=== PATIENT | female | born 1945 | race Caucasian/White ===

== ENCOUNTER 2016-08-05 12:40 | Inpatient (IN) ==
[2016-08-05] MEDS ORDERED: SODIUM CHLORIDE 0.9% 1,000 ML IV STA (13:15)
--- NOTE | 2016-08-05 13:22 | Emergency Department Note ---
Boni Armas Hilary, am scribing for, and in the presence of, Damion Meek MD 13: 20. Gaviota Armas James D, MD, personally performed the services described in this documentation, ascribed by Smiley Plata in my presence, and it is both accurate and complete 321 . Arrival - Arrival Chief Complaint: Altered Mental Status Stated Complaint: confusion ED Nursing Triage Note: Brought in per EMS from home with c/o altered mental status x 3 days per spouse. Spouse reports she has been confused and "not acting herself". Awake and alert to name. +low back pain--denies injury. Mode of Arrival: Stretcher Limitations: No Limitations Source: Patient, Significant other, RN Notes Reviewed Time Seen by Provider: 08/05/16 13:07 - History of Present Illness HPI Narrative: Pt is a 70 y/o white female brought into the ED via EMS for c/o confusion which onset 3 days ago. Pts spouse states that she is confused and dazed when she is usually sharp he denies fever and pt states her back hurts. Her daughter is in the room and reports that her medications have not been changed recently. No other complaints or problems stated in the ED. Onset (ago): day(s) Consistency: constant Severity: mild Severity scale (1-10): 1 Date of Last Menstrual Period: PM Allergies/Adverse Reactions: Allergies Allergy/AdvReac Type Severity Reaction Status Date / Time Sulfa (Sulfonamide Allergy RASH Verified 08/05/16 12:55 Antibiotics) Pyfsktt-Mye-Qrg Reductase AdvReac Intermediate Weakness Verified 08/05/16 12:55 Inhibitor promethazine [From Phenergan] AdvReac Hallucinati Verified 08/05/16 12:55 ng Home Medications: Home Medications Medication Instructions Recorded Confirmed Type Allopurinol 300 mg PO DAILY 08/29/14 08/05/16 History Atenolol 50 mg PO DAILY 08/29/14 08/05/16 History Carbidopa/Levodopa 25-100 [Sinemet 1 tablet PO BID 08/29/14 08/05/16 History 25-100] Levothyroxine Tab [Synthroid Tab] 100 mcg PO DAILY 08/29/14 08/05/16 History Ropinirole HCl [Requip] 2 mg PO BID 08/29/14 08/05/16 History Baclofen [Baclofen] 5 mg PO TID 08/05/16 08/05/16 History Furosemide [Furosemide] 40 mg PO BID 08/05/16 08/05/16 History Insulin Aspart Prot/Insuln Asp 38 units SUBCUT QPM 08/05/16 08/05/16 History [NovoLOG Mix 70-30 FlexPen] Insulin Aspart Prot/Insuln Asp 42 units SUBCUT QAM 08/05/16 08/05/16 History [NovoLOG Mix 70-30 FlexPen] LORazepam [Lorazepam] 1 mg PO TID PRN 08/05/16 08/05/16 History Potassium Chloride Cap/Tab [K Dur] 20 meq PO DAILY 08/05/16 08/05/16 History diazePAM [Diazepam] 5 mg PO BID 08/05/16 08/05/16 History metOLazone [Metolazone] 2.5 mg PO DAILY 08/05/16 08/05/16 History Review of System - Review of System 12 point system: reviewed and no additional remarkable complaints except as stated - Review of System Constitutional: Present: other (confusion). Absent: fever Neurological: Present: confusion Medical,Surgical,& Family Hx - Medical History Cardio: History of: Cardiac Dysrhythmia, Hypertension Neurology: History of: TIA (Patient reports history of TIA) Endocrine: History of: Diabetes Mellitus (IDDM), Thyroid Disorder Genitourinary: History of: Kidney Stones Gastrointestinal: History of: GERD Musculoskeletal: History of: Osteoporosis - Surgical History Thoracic Surgeries: Surgical HX of;: Lithotripsy (Twice) HEENT Surgeries: Surgical HX of: Thyroid Surgery (Thyroid removed) Reproductive Surgeries: Surgical HX of;: Hysterectomy Orthopedic Surgeries: Surgical HX of;: Orthopedic Surgery (R total knee arthroplasty and Left total hip) - Family History Family History: Reports;: Family Cancer (Bladder cancer-Mom), Family Diabetes - Social History Smoking Status: Never smoker Frequency of Alcohol Use: None Type of Drug Use: None Exam Physical Examination: GENERAL: This is a well-nourished, well-developed in no apparent distress. VITAL SIGNS: Temperature: 97.7 Pulse: 88 Respiratory: 20 Blood Pressure: 144/73 O2Sat: 93 HEENT: Head is normocephalic and atraumatic. Pupils are equally round and reactive to light. Extraocular movement are intact. Oropharynx is benign with moist mucous membranes. NECK: Neck is soft and supple without tenderness. There are no masses. There is no lymphadenopathy. LUNGS: Lungs are clear to auscultation bilaterally. Chest rises symmetrically. There is no chest wall tenderness. CV: Heart is regular rate and rhythm without murmurs, rubs, or gallops. ABDOMEN: Abdomen is soft, non-tender to palpation. There are no abnormal masses palpated. There is no organomegaly. Bowel sounds are present and active. SKIN: Skin is warm and dry. No rash. EXTREMITIES: Patient has full range of motion without tenderness. Right LE is swollen and errythematous. NEUROLOGIC: confused, delirious, disoriented to time . Cranial nerves II through XII are grossly intact. There are no motorsensory deficits. PSYCHIATRIC: Normal affect. Normal mood. Vital Signs: Vital Signs Temperature 97.7 F 08/05/16 12:40 Pulse Rate 88 08/05/16 12:40 Respiratory Rate 20 08/05/16 12:40 Blood Pressure 144/73 08/05/16 12:40 O2 Sat by Pulse Oximetry 93 L 08/05/16 12:40 Course - Consultations Consultation #1: Discussed with hospitalist. Patient will be admitted to their service. Time: 15:33 Procedures - ABG Interpretation ABG Interpretation 1 Interpretation: normal Results - Labs CBC & BMP: 08/05/16 13:43 08/05/16 13:43 Lab Results: I have reviewed the patients labs Labs: Laboratory Tests 08/05/16 13:07 ABG pH 7.447 ABG pCO2 44.1 ABG pO2 87.8 ABG HCO3 29.6 H ABG Total CO2 27.1 H ABG O2 Saturation 96.8 ABG Base Excess 5.7 H Laboratory Tests 08/05/16 08/05/16 13:43 13:46 WBC 14.3 H RBC 4.39 Hgb 11.7 L Hct 35.9 MCV 81.8 L Plt Count 350 Lymph % (Auto) 17.7 L Neut # (Auto) 10.2 H [place] # (Auto) 1.3 H POC Glucose 158 H Laboratory Tests 08/05/16 08/05/16 08/05/16 13:07 13:43 13:43 ABG pH 7.447 ABG pCO2 44.1 ABG pO2 87.8 ABG HCO3 29.6 H ABG Total CO2 27.1 H ABG O2 Saturation 96.8 ABG Base Excess 5.7 H Sodium 140 Potassium 3.4 L Chloride 100 Carbon Dioxide 32 BUN 24 H Creatinine 1.00 BUN/Creatinine Ratio 24.00 H Glucose 159 H Troponin I < 0.015 TSH 3rd Generation 0.343 L Urine pH 6.0 Ur Specific [place] 1.008 Urine Urobilinogen < 2.0 H Urine RBC <1 Urine WBC <1 Urine Opiates Screen Ur Barbiturates Screen Ur Phencyclidine Scrn U Amphetamine/Methamph U Benzodiazepines Scrn U Cocaine Metab Screen U Cannabinoids Screen Serum Alcohol < 15 L 08/05/16 13:43 ABG pH ABG pCO2 ABG pO2 ABG HCO3 ABG Total CO2 ABG O2 Saturation ABG Base Excess Sodium Potassium Chloride Carbon Dioxide BUN Creatinine BUN/Creatinine Ratio Glucose Troponin I TSH 3rd Generation Urine pH Ur Specific [place] Urine Urobilinogen Urine RBC Urine WBC Urine Opiates Screen Negative Ur Barbiturates Screen Negative Ur Phencyclidine Scrn Negative U Amphetamine/Methamph Negative U Benzodiazepines Scrn Positive H U Cocaine Metab Screen Negative U Cannabinoids Screen Negative Serum Alcohol - EKG EKG results: interpreted by ERMD - Impressions EKG: Normal sinus rhythm with rate 85, nonspecific ST-T wave changes, normal axis. - Diagnostic Findings Procedure: Chest x-ray: image reviewed by me (No infiltrates, no pleural effusions.), CT: image reviewed by me (CT head: No acute intracranial lesion or hemorrhage. Patient does have left maxillary sinusitis.), Ultrasound: report reviewed by me (Right lower extremity venous Doppler: No evidence of deep venous thrombosis in gage right lower extremity) Disposition Clinical Impression: Altered mental status, Diabetes mellitus Case discussed with: patient, patient's family Disposition: Still a Patient Condition: Stable Time of Disposition: 15:33
--- NOTE | 2016-08-05 13:31 | XRay Report ---
XR chest 1V portable Indication: Altered mental status Comparison: Chest x-ray dated May 21, 2016 Technique: Single frontal view of the chest. Findings: Mild cardiomegaly. There is nonspecific prominence of lung markings suspicious for interstitial pulmonary edema. Chronic/fibrotic change and interstitial pneumonia may have similar appearance. The lungs are mildly hyperinflated which could reflect emphysematous change. Visualized osseous and surrounding soft tissue structures appear grossly unchanged. IMPRESSION: As above. PROCEDURE INTERPRETED AT [facility] DEPARTMENT OF RADIOLOGY Final Report Signed by: Dr Victor Hugo Medellin
[2016-08-05 13:39] LABS: ABG Base Excess 5.7 MMOL/L (-2.5-2.5); ABG HCO3 29.6 MMOL/L (20-26); ABG Oxygen Saturation 96.8 % (95-100); ABG PCO2 44.1 MM HG (35-48); ABG PH 7.447 (7.35-7.45); ABG PO2 87.8 MM HG (80-95); ABG TCO2 27.1 MMOL/L (23-27)
--- NOTE | 2016-08-05 13:43 | EKG Report ---
Stationary ECG Study [facility] ER Test Date: 08/05/2016 1:42:11 PM Pat Name: GABRIEL STEVENS Department: Room: Gender: F [employer]ician: : 1945 Requested by: Damion Castañeda Order Number: [id number] Reading MD: CIERRA MORA Intervals [place] Rate: 85 P: 82 OH: 196 QRS: 5 QRSD: 90 T: 66 QT: 348 QTc: 390 Interpretive Statements SINUS RHYTHM DIFFUSE BASELINE ARTIFACT THAT LIMITS INTERPRETATION Electronically Signed On 08-06-16 08:24:00 CDT by CIERRA MORA [email or web address]
[2016-08-05 13:53] LABS: Basophils # 0.1 10*3/uL (0.0-0.2); Basophils % 0.7 % (0.0-0.8); Eosinophils # 0.1 10*3/uL (0.0-0.87); Eosinophils % 0.9 % (0.00-10.9); Hematocrit 35.9 VOL% (35.7-47.0); Hemoglobin 11.7 GM/DL (12.0-16.0); Immature Granulocytes % 0.5 %; Immature Granulocytes Absolute 0.07 #; Lymphocytes # 2.5 10*3/uL (1.4-4.0); Lymphocytes % 17.7 % (21.3-54.2); Mean Corpuscular HGB Conc 32.6 GM/DL (32-36); Mean Corpuscular Hemoglobin 27 PG (27-34); Mean Corpuscular Volume 81.8 FL (87-102); Monocytes # 1.3 10*3/uL (0.11-0.8); Monocytes % 8.8 % (1.7-12.7); Neutrophils # 10.2 10*3/uL (1.4-7.4); Neutrophils % 71.4 % (38.7-73.9); Platelet Count 350 T/CUMM (130-400); Red Blood Count 4.39 MC/CUMM (3.8-5.5); White Blood Count 14.3 T/CUMM (4-12)
[2016-08-05 14:06] LABS: PT Patient Result 10.9 SECS
--- NOTE | 2016-08-05 14:13 | Ultrasound Report ---
US venous doppler LE RT Indication: Swelling of RLE. Comparison: None. Technique: Grayscale, spectral, and color Doppler interrogation of the right lower extremity veins was performed. Augmentation and compression was performed. Findings: Grayscale, color Doppler, and pulsed Doppler evaluation of the veins of the right lower extremity demonstrates no evidence of deep venous thrombosis. IMPRESSION: No evidence of deep venous thrombosis in the right lower extremity. PROCEDURE INTERPRETED AT [facility] DEPARTMENT OF RADIOLOGY Final Report Signed by: Dr Victor Hugo Medellin
[2016-08-05 14:14] LABS: Apearance,Urine CLEAR (Clear); Bilirubin,Urine Negative (Negative); Blood, Urine Negative (Negative); Glucose,Urine (UA) Negative (Negative); Ketones,Urine Negative (Negative); Nitrite,Urine Negative (Negative); Protein,Urine Negative; RBC,Urine <1 /HPF (0-4); Squamous Epithelial Cell,Urine Occasional /HPF (0-10); Urine Color Straw (Yellow); Urine Specific Gravity 1.008 (1.001-1.035); Urine Urobilinogen < 2.0 EU/DL (0.2-1.0); WBC,Urine <1 /HPF (0-6)
[2016-08-05 14:18] LABS: Ammonia 19 UMOL/L (11-32)
[2016-08-05 14:25] LABS: Barbiturates Screen,Urine Negative (Negative); Benzodiazepines Screen,Urine Positive (Negative); Cannabinoid Screen,Urine Negative (Negative); Opiate Screen,Urine Negative (Negative); Phencyclidine Screen,Urine Negative (Negative)
[2016-08-05 14:30] LABS: Alanine Aminotransferase 18 U/L (13-56); Albumin 3.6 G/DL (3.4-5.0); Alkaline Phosphatase 114 U/L (45-117); Aspartate Amino Transferase 19 U/L (0-37); Blood Urea Nitrogen 24 MG/DL (7-18); Calcium 9.5 MG/DL (8.5-10.1); Glucose 159 MG/DL (74-106); Osmolality,Calculated 285.4 MOS/KG (273-304); Potassium 3.4 MMOL/L (3.5-5.1); Sodium 140 MMOL/L (136-145); Thyroid Stimulating Hormone 0.343 uIU/ml (0.358-3.74); Total Protein 6.5 G/DL (6.4-8.3); Troponin I Only < 0.015 NG/ML (0.00-0.045)
--- NOTE | 2016-08-05 15:43 | CT Report ---
CT head/brain wo con Indication: Altered mental status. CT BRAIN WITHOUT CONTRAST DLP: 1012 mGy*cm. One or more of the following dose reduction techniques was used: Automated exposure control, adjustment of the mA and/or kV according the patient size, or use of iterative reconstruction techniques. Comparison: None. Date of admission: 08/05/2016. Technique: Axial noncontrast CT images of the brain were obtained. Findings: No acute hemorrhage, mass or mass effect. Generalized atrophy and patchy periventricular white matter hypodensity is present throughout both convexities. Cortical arriola-white junction and structures of the basal ganglia are well-defined. No bone lesions are shown. Internal auditory canals are symmetric. Visualized sinuses and mastoid air cells are clear. Impression: No acute intracranial pathology. Generalized atrophy and changes consistent with microvascular disease. PROCEDURE INTERPRETED AT [facility] DEPARTMENT OF RADIOLOGY Final Report Signed by: Denzel Schuler M.D.
--- NOTE | 2016-08-05 16:47 | Hospitalist History & Physical ---
<Edda Aponte - Last Filed: 08/05/16 16:58> Assessment and Plan (1) Altered mental status Status: Acute Assessment and plan: Admit patient. Cardiac monitoring. Consult neuro. MRI pending. Ammonia/lactic acid normal. WBC elevated. Current Visit: Yes (2) Diabetes mellitus Status: Acute Assessment and plan: Accuchecks. SSI. Hemoglobin A1c in am. Monitor patient. Diabetes education. Diabetic diet Current Visit: Yes (3) Hypokalemia Status: Acute Assessment and plan: Replace potassium. Current Visit: No (4) Gout Status: Chronic Current Visit: No History of Present Illness Chief complaint: altered mental status/frequent falls History of present illness: Ms. Crooks is a 70 year old white female with a history of gerd, hypertension, cardiac dysrhthmia, DM, hypothyroidism, restless legs, and parkinsons that presents to the ED today with evaluation of confusion. Pt. is accompanied by and daughter. Pt's states that the patient has been falling frequently lately and that she has not been "acting right". Pt. states that the patient was found on the floor of her bedroom this morning around 9. Pt states she cant remember if she hit her head or not. Pt. denies fever,vision changes, shortness of breath or chest pain. Pt. does complain of generalized weakness. On examination of patient, she was found to have an elevated WBC (14.3), Na (140 ), K (3.4), chl (100), bun (24), creatinine (1) and tsh (0.343). Head CT was unremarkable with no acute pathology noted. Pt. will be admitted to the hospitalist service for further eval and treatment. Home Medications Medication Instructions Recorded Confirmed Type Allopurinol 300 mg PO DAILY 08/29/14 08/05/16 History Atenolol 50 mg PO DAILY 08/29/14 08/05/16 History Carbidopa/Levodopa 25-100 [Sinemet 1 tablet PO BID 08/29/14 08/05/16 History 25-100] Levothyroxine Tab [Synthroid Tab] 100 mcg PO DAILY 08/29/14 08/05/16 History Ropinirole HCl [Requip] 2 mg PO BID 08/29/14 08/05/16 History Baclofen [Baclofen] 5 mg PO TID 08/05/16 08/05/16 History Furosemide [Furosemide] 40 mg PO BID 08/05/16 08/05/16 History Insulin Aspart Prot/Insuln Asp 38 units SUBCUT QPM 08/05/16 08/05/16 History [NovoLOG Mix 70-30 FlexPen] Insulin Aspart Prot/Insuln Asp 42 units SUBCUT QAM 08/05/16 08/05/16 History [NovoLOG Mix 70-30 FlexPen] LORazepam [Lorazepam] 1 mg PO TID PRN 08/05/16 08/05/16 History Potassium Chloride Cap/Tab [K Dur] 20 meq PO DAILY 08/05/16 08/05/16 History diazePAM [Diazepam] 5 mg PO BID 08/05/16 08/05/16 History metOLazone [Metolazone] 2.5 mg PO DAILY 08/05/16 08/05/16 History Allergies Allergy/AdvReac Type Severity Reaction Status Date / Time Sulfa (Sulfonamide Allergy RASH Verified 08/05/16 12:55 Antibiotics) Lnyswom-Usi-Wls Reductase AdvReac Intermediate Weakness Verified 08/05/16 12:55 Inhibitor promethazine [From Phenergan] AdvReac Hallucinati Verified 08/05/16 12:55 ng Medical,Surgical,& Family Hx - Medical History Cardio: History of: Cardiac Dysrhythmia, Hypertension Neurology: History of: TIA (Patient reports history of TIA) Endocrine: History of: Diabetes Mellitus (IDDM), Thyroid Disorder Genitourinary: History of: Kidney Stones Gastrointestinal: History of: GERD Musculoskeletal: History of: Osteoporosis - Surgical History Thoracic Surgeries: Surgical HX of;: Lithotripsy (Twice) HEENT Surgeries: Surgical HX of: Thyroid Surgery (Thyroid removed) Reproductive Surgeries: Surgical HX of;: Hysterectomy Orthopedic Surgeries: Surgical HX of;: Orthopedic Surgery (R total knee arthroplasty and Left total hip) - Family History Family History: Reports;: Family Cancer (Bladder cancer-Mom), Family Diabetes - Social History Smoking Status: Never smoker Frequency of Alcohol Use: None Type of Drug Use: None Marital Status: Lives With:: Spouse Functional capacity: uses cane/walker - Constitutional Constitutional: Present: frequent falls, weakness. Absent: chills, fever(s) - EENT Eyes: Present: loss of vision, requires corrective lense Ears: Present: decreased hearing. Absent: ear discharge Nose, mouth and throat: Absent: headache(s), hoarseness - Cardiovascular Cardiovascular: Present: dyspnea, edema - Respiratory Respiratory: Present: dyspnea on exertion. Absent: hemoptysis - Gastrointestinal Gastrointestinal: Absent: abdominal pain, nausea, vomiting - Genitourinary Genitourinary: Absent: difficulty urinating, urinary frequency - Musculoskeletal Musculoskeletal: Present: back pain - Neurological Neurological: Present: confusion, frequent falls - Psychiatric Psychiatric: Present: confusion - Endocrine Endocrine: Present: heat intolerance Exam - Constitutional Vitals: Period Temp Pulse Resp BP Sys/Shipley Pulse Ox Last 24 Hr 97.7 F-97.7 F 88-88 20-20 144-144/73-73 93 General appearance: no acute distress, morbidly obese - Head Head exam: Present: normal inspection, normocephalic - Eye Eye exam: Present: EOMI. Absent: scleral icterus Pupils: Present: SHANAE. Absent: dilated - Respiratory Respiratory exam: Present: clear to auscultation bilaterally. Absent: wheezes - Cardiovascular Cardiovascular exam: Present: regular rate and rhythm - GI/Abdominal GI/Abdominal exam: Present: normal bowel sounds, soft. Absent: tenderness - Extremities Exam Extremities exam: Present: normal capillary refill, full ROM, edema, other ( pedal pulses present) - Psychiatric Psychiatric exam: Present: anxious - Skin Skin exam: Present: normal color, warm (right warmer than left;), dry Results - Labs CBC & BMP: 08/05/16 13:43 08/05/16 13:43 Lab Results: I have reviewed the past 24 hour labs <Bia Turner - Last Filed: 08/05/16 17:20> History of Present Illness History of present illness: Ms. Crooks is a 70 year old female with multiple medical problems who was brought to the ER for AMS.Family states patient recently started falling off a chair while sitting on it. This started about 24hrs ago ago and she has since had multiple episodes. She states associated occasional dizziness but no headaches, fever and gait abnormalities. states she has been having abnormal movement for a long time given a history of Parkinsons. There is no known history of sleep apnea though patient is obese. There is no focal weakness as well. Patient was seen, examined and discussed with the [facility] and I agree with current management. Plan MR brain Neuro consult Reduce dose of synthroid- TSH is borderline low Gently hydrate and hold diuretics for now [place] Telemetry cardiac enzymes consider sleep study Exam - Constitutional Vitals: Period Temp Pulse Resp BP Sys/Shipley Pulse Ox Last 24 Hr 97.7 F-97.7 F 88-89 20-20 144-144/73-73 93 Results - Labs CBC & BMP: 08/05/16 13:43 08/05/16 13:43
[2016-08-05] MEDS ORDERED: LORazepam 1 MG TABLET PO PRN (17:00)
[2016-08-05] MEDS ORDERED: SODIUM CHLORIDE 0.45% 1,000 ML IV SCH (17:30)
[2016-08-05] MEDS ORDERED: ONDANSETRON 4 MG/2 ML VIAL IV PRN (18:29)
[2016-08-05] MEDS ORDERED: GLUCAGON 1 MG VIAL IM PRN ×2 (18:29)
[2016-08-05] MEDS ORDERED: DEXTROSE 50% 25 GM/50 ML VIAL IV PRN ×2 (18:29)
[2016-08-05 19:55] LABS: Troponin I Only < 0.015 NG/ML (0.00-0.045)
[2016-08-05] MEDS ORDERED: FUROSEMIDE 40 MG TABLET PO SCH (21:00)
[2016-08-05] MEDS: SODIUM CHLORIDE 0.45% 1,000 ML IV SCH (21:10)
[2016-08-05] MEDS: rOPINIRole 1 MG TABLET PO SCH (21:45)
[2016-08-05] MEDS: BACLOFEN 10 MG TABLET PO SCH (21:45)
[2016-08-05] MEDS: DIAZEPAM 5 MG TABLET PO SCH (21:45)
[2016-08-05] MEDS: CARBIDOPA/LEVODOPA 25-100 MG TABLET PO SCH (21:45)
[2016-08-05] MEDS: INSULIN LISPRO 100 UNIT/ML SUBCUT SCH (22:00)
[2016-08-06 06:25] LABS: Basophils # 0.1 10*3/uL (0.0-0.2); Eosinophils # 0.2 10*3/uL (0.0-0.87); Eosinophils % 2.3 % (0.00-10.9); Hematocrit 34.5 VOL% (35.7-47.0); Hemoglobin 11.1 GM/DL (12.0-16.0); Immature Granulocytes % 0.3 %; Immature Granulocytes Absolute 0.03 #; Lymphocytes # 2.7 10*3/uL (1.4-4.0); Lymphocytes % 29.8 % (21.3-54.2); Mean Corpuscular HGB Conc 32.2 GM/DL (32-36); Mean Corpuscular Hemoglobin 27 PG (27-34); Mean Corpuscular Volume 83.3 FL (87-102); Mean Platelet Volume 11.3 FL (9.6-12.0); Monocytes # 0.8 10*3/uL (0.11-0.8); Monocytes % 9.1 % (1.7-12.7); Neutrophils # 5.3 10*3/uL (1.4-7.4); Neutrophils % 57.5 % (38.7-73.9); Platelet Count 337 T/CUMM (130-400); Red Blood Count 4.14 MC/CUMM (3.8-5.5); Red Cell Distribution Width 16.3 % (9.3-17.3); White Blood Count 9.1 T/CUMM (4-12)
[2016-08-06] MEDS: LEVOTHYROXINE 75 MCG TABLET PO SCH (06:40)
[2016-08-06 07:08] LABS: Calcium 9.1 MG/DL (8.5-10.1); Osmolality,Calculated 284.3 MOS/KG (273-304); Potassium 3.6 MMOL/L (3.5-5.1); Troponin I Only < 0.015 NG/ML (0.00-0.045)
[2016-08-06 07:13] LABS: Free T4 (Free Thyroxine) 1.1 NG/DL (0.76-1.46); Magnesium 2.2 MG/DL (1.8-2.4); Risk Ratio 5.68; Thyroid Stimulating Hormone 0.609 uIU/ml (0.358-3.74)
[2016-08-06] MEDS ORDERED: metOLazone 2.5 MG TABLET PO SCH (09:00)
--- NOTE | 2016-08-06 09:01 | Neurology Consult Note ---
History of Present Illness History of present illness: Patient is not a very good historian. History basically obtained from the chart and some from the nursing staff. 70 years old right-handed white lady who was admitted to the hospital with frequent falls and gait disorder. Patient does not have a history of Parkinson' s disease. She has restless leg syndrome and takes Sinemet and Requip for that. She also has a history of chronic pain syndrome and sees Dr. Pleitez who recently prescribed Eden and apparently a whole bottle is missing. She also takes baclofen and Valium for anxiety and pain. Patient does have a long- standing history of diabetes. No history of seizures. She does not have any speech difficulties, swallowing difficulties, tingling and numbness or weakness at this time. A CT of the head reveals no acute abnormalities. UA is negative , triglycerides are high. Home Medications Medication Instructions Recorded Confirmed Type Allopurinol 300 mg PO DAILY 08/29/14 08/05/16 History Atenolol 50 mg PO DAILY 08/29/14 08/05/16 History Carbidopa/Levodopa 25-100 [Sinemet 1 tablet PO BID 08/29/14 08/05/16 History 25-100] Levothyroxine Tab [Synthroid Tab] 100 mcg PO DAILY 08/29/14 08/05/16 History Ropinirole HCl [Requip] 2 mg PO BID 08/29/14 08/05/16 History Baclofen [Baclofen] 5 mg PO TID 08/05/16 08/05/16 History Doxylamine Succinate [Unisom] 25 mg PO BEDTIME 08/05/16 08/05/16 History Furosemide [Furosemide] 40 mg PO BID 08/05/16 08/05/16 History Insulin Aspart Prot/Insuln Asp 38 units SUBCUT QPM 08/05/16 08/05/16 History [NovoLOG Mix 70-30 FlexPen] Insulin Aspart Prot/Insuln Asp 42 units SUBCUT QAM 08/05/16 08/05/16 History [NovoLOG Mix 70-30 FlexPen] LORazepam [Lorazepam] 1 mg PO TID PRN 08/05/16 08/05/16 History Naproxen Sodium [Aleve Cap] 220 mg PO Q8H PRN 08/05/16 08/05/16 History Potassium Chloride Cap/Tab [K Dur] 20 meq PO BID 08/05/16 08/05/16 History diazePAM [Diazepam] 5 mg PO BID 08/05/16 08/05/16 History diphenhydrAMINE CAP [Benadryl Cap] 25 mg PO BEDTIME PRN 08/05/16 08/05/16 History Allergies Allergy/AdvReac Type Severity Reaction Status Date / Time Sulfa (Sulfonamide Allergy RASH Verified 08/05/16 12:55 Antibiotics) Srqnxte-Gyl-Gpi Reductase AdvReac Intermediate Weakness Verified 08/05/16 12:55 Inhibitor promethazine [From Phenergan] AdvReac Hallucinati Verified 08/05/16 12:55 ng ROS unobtainable: due to mental status Medical,Surgical,& Family Hx - Medical History Cardio: History of: Cardiac Dysrhythmia, Hypertension Psychological: No history of: Anxiety Disorders, ADHD, Behavior Problems, Bipolar Disorder, Depression, Previous Suicide Attempt, Psychiatric/Substance Abuse Tx, Schizophrenia, Violent Behavior, Psychiatric Problems Neurology: History of: TIA (Patient reports history of TIA) Endocrine: History of: Diabetes Mellitus (IDDM), Thyroid Disorder Genitourinary: History of: Kidney Stones Gastrointestinal: History of: GERD Musculoskeletal: History of: Osteoporosis - Surgical History Thoracic Surgeries: Surgical HX of;: Lithotripsy (Twice) HEENT Surgeries: Surgical HX of: Thyroid Surgery (Thyroid removed) Reproductive Surgeries: Surgical HX of;: Hysterectomy Orthopedic Surgeries: Surgical HX of;: Orthopedic Surgery (R total knee arthroplasty and Left total hip) - Family History Family History: Reports;: Family Cancer (Bladder cancer-Mom), Family Diabetes - Social History Smoking Status: Never smoker Frequency of Alcohol Use: None Type of Drug Use: None Exam - Constitutional Vitals: Period Temp Pulse Resp BP Sys/Shipley Pulse Ox Last 24 Hr 96.3 F-98.1 F 69-90 18-22 95-153/41-87 92-98 Exam: GENERAL: Patient is in no acute distress. NECK: Neck is supple. There is no JVD. No carotid bruits present. No thyroid masses. CVS: First and second heart sounds are normal. There is no S3 present. Regular rate and rhythm. RESPIRATORY: Lungs are clear to auscultation without any rales or rhonchi. ABDOMEN: Soft and non-tender. Bowel sounds are present. There is no hepatosplenomegaly. EXT: There is no palpable edema. Peripheral pulses are present. Skin: No rashes Central Nervous system: General: Alert, awake Speech: Fluent Comprehension: Intact and normal Facial expressions: Normal Cranial Nerves: CN1/Olfactory: Normal CN II/ Optic: Normal, Visual [place] unreliable CN III, and : SHANAE & EOMI CN V: Normal & intact CN VII: face is symmetric CNVIII: Normal CN XI/X/XI/XII: Intact and Normal Motor: Bulk and Tone is normal. Strength in the right 3/5 Strength in the left 3/5 Sensory: Decreased for all the modalities of PP, LT and temp sense Reflexes: 1+ and symmetrical Cerebellar function: Normal finger to nose and heel to justin testing. Toes: Equivocal Gait: Not tested at this time Results - Labs CBC & BMP: 08/06/16 05:51 08/06/16 05:51 Assessment and Plan (1) Frequent falls Status: Acute Assessment and plan: Etiology is not clear. No focal neurological deficits seen. Stroke would be less likely however cannot be excluded entirely. Change in mental status could very well be due to neurotropic medications use/ abuse Current Visit: Yes (2) Gait disorder Status: Acute Assessment and plan: Differential would include stroke, peripheral neuropathy or neurotropic medication use We will perform MRI of the brain Consult PT and OT Check Mini-Mental exam Thank you for the consult Current Visit: Yes
[2016-08-06] MEDS: INSULIN LISPRO 100 UNIT/ML SUBCUT SCH ×4 (09:24→21:20)
--- NOTE | 2016-08-06 10:00 | Magnetic Resonance Report ---
Exam: MR head/brain wo con Date: 08/06/2016 Comparison: CT brain 08/05/2016 Indication: Alteration of consciousness, generalized weakness, history of recent falls, confusion Technique:[Multiple acquisitions were obtained including sagittal T1, coronal T2, and axial ADC, diffusion, FLAIR, T2, GRE, and T1 scans without contrast only. Scans were obtained on a 1.5 Karyn magnet.] Findings: The ventricles remain normal in size with no midline displacement. The pituitary is at the upper limits of normal in size with the cerebellar tonsils normal in their location. No acute infarction is identified in the diffusion scans. No evidence of hemorrhage or extracerebral collection. Diffuse atrophy and FLAIR/T2 hyperintensities. Additional enlarged perivascular spaces are noted. Mucosal thickening/fluid in the left maxillary sinus with retention cysts/polyps in the floor of the sinus. No acute findings in the orbits, temporal bones, or [place]. Impression: No acute infarction is identified on the diffusion scans. Atrophy and minimal to moderate microvascular disease. T2 hyperintensities can also be associated with demyelinating disease, vasculitis, viral illness, etc. The pituitary is at the upper limits normal in size. Left maxillary sinusitis. PROCEDURE INTERPRETED AT [facility] DEPARTMENT OF RADIOLOGY Final Report Signed by: Dr. Lela Grande
[2016-08-06] MEDS: ATENOLOL 50 MG TABLET PO SCH (10:30)
[2016-08-06] MEDS: POTASSIUM CHLORIDE 20 MEQ TABLET PO SCH (10:30)
[2016-08-06] MEDS: BACLOFEN 10 MG TABLET PO SCH ×3 (10:30→21:21)
[2016-08-06] MEDS: CARBIDOPA/LEVODOPA 25-100 MG TABLET PO SCH ×2 (10:30→21:21)
[2016-08-06] MEDS: rOPINIRole 1 MG TABLET PO SCH ×2 (10:31→21:21)
[2016-08-06] MEDS: DIAZEPAM 5 MG TABLET PO SCH ×2 (10:31→21:21)
[2016-08-06] MEDS: PANTOPRAZOLE 40 MG TABLET PO SCH (10:31)
[2016-08-06] MEDS: ALLOPURINOL 300 MG TABLET PO SCH (10:34)
[2016-08-06] MEDS: SODIUM CHLORIDE 0.45% 1,000 ML IV SCH ×2 (13:13→17:27)
--- NOTE | 2016-08-06 16:34 | Hospitalist Progress Note ---
Assessment and Plan (1) Hypokalemia Status: Resolved Current Visit: No (2) Altered mental status Status: Acute Assessment and plan: Patient recently started on baclofen Started on ativan in June Possibly related to medications Neurology consulted, MRI ordered Current Visit: Yes (3) Diabetes mellitus Status: Acute Assessment and plan: Starting Lantus while inpatient SSI Current Visit: Yes (4) Diabetes type 2, uncontrolled Status: Acute Current Visit: No Hospitalist: Subjective Interval history: No acute events overnight. Patient is feeling better today. Her family reports that she is at her baseline mental status. Exam - Constitutional Vitals: Period Temp Pulse Resp BP Sys/Shipley Pulse Ox Last 24 Hr 96.3 F-98.1 F 63-86 18-22 95-153/41-79 91-97 General appearance: over weight - Head Head exam: Present: normocephalic, atraumatic - Eye Eye exam: Present: EOMI Pupils: Present: SHANAE - ENT ENT exam: Present: normal exam - Neck Neck exam: Present: normal inspection - Respiratory Respiratory exam: Present: clear to auscultation bilaterally. Absent: wheezes - Cardiovascular Cardiovascular exam: Present: regular rate and rhythm - GI/Abdominal GI/Abdominal exam: Present: normal bowel sounds, soft. Absent: tenderness, rebound - Extremities Exam Extremities exam: Present: normal inspection - Back Exam Back exam: Present: normal inspection - Neurological Exam Neurological exam: Present: alert, oriented X3 - Psychiatric Psychiatric exam: Present: normal affect, normal mood - Skin Skin exam: Present: warm, intact Results - Labs CBC & BMP: 08/06/16 05:51 08/06/16 05:51
--- NOTE | 2016-08-06 17:02 | XRay Report ---
XR lumbar spine AP/LAT Indication: Back pain after fall. Lumbar spine 3 views: No acute compression fractures. No spondylolisthesis. Moderate levoscoliosis, apex L3. Diffuse disc space narrowing is present, mild L1-2, severe at L2-3 and L3-4, moderate at L4-5 and mild at L5-S1. Impression: Extensive degenerative changes as described. No acute bony injury. PROCEDURE INTERPRETED AT [facility] DEPARTMENT OF RADIOLOGY Final Report Signed by: Denzel Schuler M.D.
[2016-08-06] MEDS ORDERED: INSULIN GLARGINE 100 UNIT/ML SUBCUT SCH (21:00)
[2016-08-07 05:33] LABS: Basophils # 0.1 10*3/uL (0.0-0.2); Basophils % 1.2 % (0.0-0.8); Eosinophils # 0.3 10*3/uL (0.0-0.87); Eosinophils % 3.5 % (0.00-10.9); Hematocrit 33.6 VOL% (35.7-47.0); Hemoglobin 10.5 GM/DL (12.0-16.0); Immature Granulocytes % 0.4 %; Immature Granulocytes Absolute 0.03 #; Lymphocytes # 2.8 10*3/uL (1.4-4.0); Mean Corpuscular HGB Conc 31.3 GM/DL (32-36); Mean Corpuscular Hemoglobin 27 PG (27-34); Mean Corpuscular Volume 85.1 FL (87-102); Mean Platelet Volume 11.6 FL (9.6-12.0); Monocytes # 0.8 10*3/uL (0.11-0.8); Neutrophils # 3.7 10*3/uL (1.4-7.4); Neutrophils % 47.9 % (38.7-73.9); Platelet Count 321 T/CUMM (130-400); Red Blood Count 3.95 MC/CUMM (3.8-5.5); Red Cell Distribution Width 16.4 % (9.3-17.3); White Blood Count 7.6 T/CUMM (4-12)
[2016-08-07 06:00] LABS: Calcium 9.1 MG/DL (8.5-10.1); Magnesium 2.2 MG/DL (1.8-2.4); Osmolality,Calculated 288.3 MOS/KG (273-304); Potassium 4.1 MMOL/L (3.5-5.1)
[2016-08-07] MEDS: LEVOTHYROXINE 75 MCG TABLET PO SCH (06:20)
[2016-08-07] MEDS: PANTOPRAZOLE 40 MG TABLET PO SCH (08:50)
[2016-08-07] MEDS: rOPINIRole 1 MG TABLET PO SCH (08:50)
[2016-08-07] MEDS: DIAZEPAM 5 MG TABLET PO SCH (08:50)
[2016-08-07] MEDS: POTASSIUM CHLORIDE 20 MEQ TABLET PO SCH (08:50)
[2016-08-07] MEDS: ATENOLOL 50 MG TABLET PO SCH (08:50)
[2016-08-07] MEDS: INSULIN LISPRO 100 UNIT/ML SUBCUT SCH (08:51)
[2016-08-07] MEDS: ALLOPURINOL 300 MG TABLET PO SCH (08:51)
[2016-08-07] MEDS: CARBIDOPA/LEVODOPA 25-100 MG TABLET PO SCH (08:51)
--- NOTE | 2016-08-07 10:42 | Discharge Summary ---
<Connie Montague - Last Filed: 08/07/16 10:39> Hospital Course - Hospital Course Hospital Course: This is a very pleasant 70-year-old female that presented to the ED at [facility] on August 05, 2016 per EMS for evaluation of altered mental status. Patient has a medical history significant for transient ischemic attack, restless leg syndrome, chronic pain syndrome, insulin- dependent diabetes mellitus, hypothyroidism, renal calculi, osteoporosis, hypertension, and GERD. Patient has a surgical history significant for lithotripsy, thyroidectomy, hysterectomy, right total knee arthroplasty, and left total hip replacement. At the time of ED presentation, the patient was grossly altered. Her was present at bedside and he served as historian. He reported the onset of symptoms 3 days prior to presentation. He reported that the patient had been confused and not "acting like herself". The patient was awake and oriented to name only at the time of ED presentation. Pertinent positives include: Lower back pain and altered mental status, pertinent negatives included: Aphasia, dysphasia, weakness fever, nausea, vomiting, and chills. The patient was assessed at the time of ED presentation. Labs were obtained; hematology reported a white blood cell count 14.3, hemoglobin is 11.7, hematocrit 35.9, lymphocytes% at 17.7, neutrophil#at 10.2, and monocyte#at 1.3. Coagulation panel reported an INR 1.0. Arterial blood gas reported a pH at 7.447, PCO2 at 44.1, PO2 at 87.8, HC03 at 29.6. Chemistry panel reported sodium at 140, potassium 3.4, chloride 100, carbon dioxide at 32, anion gap at 11.4, BUN at 24, creatinine at 1.00, glucose of 159, hemoglobin A1c at 8.4, lactic acid at 0.7, calculated osmolality at 285.4.Cardiac enzymes were were obtained and were noted at less than 0.015. Lipid panels were obtained which reported a triglyceride at 285, cholesterol at 215, LDL cholesterol at 124, VLDL cholesterol at 57.0, and HDL cholesterol at 37. TSH was noted at 0.343. Urinalysis was essentially negative. Urine toxicology was positive for benzodiazepines and serum alcohol level was less than 15. Chest x-ray revealed no infiltrates or pleural effusions. CT of head was essentially benign for any acute intracranial lesion or hemorrhage however the presence of the left maxillary sinusitis was noted. Venous dopplers of the right lower leg were benign for the presence of deep vein thrombosis. The patient was subsequently under the hospitalist services for continuation of care. At the time of admission, the patient's medications were reviewed and adjusted. A neurology consult was requested. MRI was obtained on August 05, 2016 which reported no acute infarction is identified on the diffusion scans; Atrophy and minimal to moderate microvascular disease; T2 hyperintensities can also be associated with demyelinating disease, vasculitis, viral illness.Pituitary was at the upper limits normal in size and left maxillary sinusitis was noted. Physical therapy and Occupational Therapy consultations were requested. The patient's condition gradually improved. The patient's vital signs stable and she has not experienced any significant overnight events. She has now reached maximal benefit of stay and will be discharged to home. Discharge Plan - Discharge Data Disposition: Disch To Home/Self Care - Discharge Medications New Atenolol [Tenormin] 50 mg PO DAILY tablet Levothyroxine Tab [Synthroid Tab] 75 mcg PO DAILY@0700 #30 tablet Allopurinol [Zyloprim] 300 mg PO DAILY tablet Baclofen Tab [Lioresal] 5 mg PO BEDTIME #30 tablet Continue Ropinirole HCl [Requip] 2 mg PO BID Carbidopa/Levodopa 25-100 [Sinemet 25-100] 1 tablet PO BID diazePAM [Diazepam] 5 mg PO BID Furosemide 40 mg PO BID Insulin Aspart Prot/Insuln Asp [NovoLOG Mix 70-30 FlexPen] 42 units SUBCUT QAM Insulin Aspart Prot/Insuln Asp [NovoLOG Mix 70-30 FlexPen] 38 units SUBCUT QPM Potassium Chloride Cap/Tab [K Dur] 20 meq PO BID Doxylamine Succinate [Unisom] 25 mg PO BEDTIME HYDROcodone/ACETAMIN 10-325 [[place] 10-325] 1 tablet PO Q8HR PRN PRN Reason: Pain Naproxen Sodium [Aleve Cap] 220 mg PO Q8H PRN PRN Reason: Pain Discontinued Levothyroxine Tab [Synthroid Tab] 100 mcg PO DAILY Atenolol 50 mg PO DAILY Allopurinol 300 mg PO DAILY Baclofen [Baclofen] 5 mg PO TID diphenhydrAMINE CAP [Benadryl Cap] 25 mg PO BEDTIME PRN PRN Reason: Insomnia LORazepam [Lorazepam] 1 mg PO TID PRN PRN Reason: Anxiety - Follow Up or Referral - Forms/Instructions Instructions: Altered Mental Status (GEN), Fall Prevention (DC) Exam - Constitutional Vitals: Period Temp Pulse Resp BP Sys/Shipley Pulse Ox Last 24 Hr 96.8 F-98.7 F 63-67 18-20 96-128/47-67 91-96 Discharge Results Procedures and tests throughout hospitalization: Pending Orders 08/05/16 19:04 Blood Culture Stat Labs on day of discharge: Labs from last 24 hours 08/07/16 08/07/16 08/06/16 04:25 04:25 19:08 WBC 7.6 RBC 3.95 Hgb 10.5 L Hct 33.6 L MCV 85.1 L MCH 27 MCHC 31.3 L RDW 16.4 Plt Count 321 MPV 11.6 Neut % (Auto) 47.9 Lymph % (Auto) 36.0 [place] % (Auto) 11.0 Eos % (Auto) 3.5 Baso % (Auto) 1.2 H Neut # (Auto) 3.7 Lymph # (Auto) 2.8 [place] # (Auto) 0.8 Eos # (Auto) 0.3 Baso # (Auto) 0.1 Immature Gran % 0.4 Nucleated RBC % 0.0 Immature Gran # 0.03 Nucleated RBCs # 0.00 Sodium 141 Potassium 4.1 Chloride 104 Carbon Dioxide 31 Anion Gap 10.1 BUN 16 Creatinine 0.90 GFR Calculation 77 BUN/Creatinine Ratio 17.00 Glucose 231 H POC Glucose 240 H Calculated Osmolality 288.3 Calcium 9.1 Magnesium 2.2 08/06/16 08/06/16 15:28 11:43 WBC RBC Hgb Hct MCV MCH MCHC RDW Plt Count MPV Neut % (Auto) Lymph % (Auto) [place] % (Auto) Eos % (Auto) Baso % (Auto) Neut # (Auto) Lymph # (Auto) [place] # (Auto) Eos # (Auto) Baso # (Auto) Immature Gran % Nucleated RBC % Immature Gran # Nucleated RBCs # Sodium Potassium Chloride Carbon Dioxide Anion Gap BUN Creatinine GFR Calculation BUN/Creatinine Ratio Glucose POC Glucose 275 H 176 H Calculated Osmolality Calcium Magnesium Preliminary micro results at discharge 08/05/16 19:04 Blood Culture - Preliminary Blood No growth at 1 day 08/05/16 19:04 Blood Culture - Preliminary Blood No growth at 1 day DS: Provider Date of admission: 08/05/16 15:49 Primary care physician: Ford Dias, Attending physician on admission: Bia Turner MD Consults: 08/05/16 18:29 Consult to Physician [CONS] Routine Comment: Consulting Provider: Andrey Miles Person Notified: DR. MILES Date Notified: 08/06/16 Time Notified: 09:23 08/06/16 09:03 Consult to Occupational Therapy [CONS] Routine Reason for Occupational Therapy: Evaluate and Treat Consult to Physical Therapy [CONS] Routine Reason for Physical Therapy: Evaluate and Treat Discharging clinician: Connie Montague CNP <Brenden Duncan - Last Filed: 08/07/16 11:40> Hospital Course - Time spent with patient Time with patient DS: Greater than 30 minutes (35) Diagnosis - Discharge Diagnosis (1) Hypokalemia Status: Resolved (2) Altered mental status Status: Resolved (3) Diabetes mellitus Status: Chronic (4) Diabetes type 2, uncontrolled Status: Chronic Discharge Plan - Discharge Data Condition at Discharge: Stable Discharge Diet: diabetic diet Activity: resume usual activities as tolerated Hygiene: no restrictions Weight Bearing at Discharge: weight bear as tolerated Contact your physician if you experience:: fever over 101 Exam - Constitutional General appearance: over weight - Head Head exam: Present: normocephalic, atraumatic - Eye Eye exam: Present: EOMI Pupils: Present: SHANAE - ENT ENT exam: Present: normal exam - Neck Neck exam: Present: normal inspection - Respiratory Respiratory exam: Present: clear to auscultation bilaterally - Cardiovascular Cardiovascular exam: Present: regular rate and rhythm - GI/Abdominal GI/Abdominal exam: Present: normal bowel sounds, soft. Absent: tenderness, rebound - Extremities Exam Extremities exam: Present: normal inspection - Back Exam Back exam: Present: normal inspection - Neurological Exam Neurological exam: Present: alert, oriented X3 - Psychiatric Psychiatric exam: Present: normal affect, normal mood - Skin Skin exam: Present: warm, intact
[2016-08-07] MEDS: SODIUM CHLORIDE 0.45% 1,000 ML IV SCH (11:48)
[2016-08-07 12:15] VITALS: BP 117/63
[2016-08-07] MEDS ORDERED: BACLOFEN 10 MG TABLET PO SCH (21:00)
== END 2016-08-07 13:35 | disposition home health service (06) | DRG 948 ==
LOC: EDUNIT# → EDBD → N.ED 12:40 → N.EDINP 15:49 → SUATTDRO 15:49 → N.5E 16:27
PROVIDERS: ADMIT Internal Medicine; ATTEND Internal Medicine

== ENCOUNTER 2016-09-02 15:54 | Inpatient (IN) ==
[2016-09-02] MEDS ORDERED: MAGNESIUM HYDROXIDE SUSP 30 ML UDCUP PO PRN (16:10)
[2016-09-02] MEDS ORDERED: DEXTROSE 50% 25 GM/50 ML VIAL IV PRN (16:10)
[2016-09-02] MEDS ORDERED: GLUCAGON 1 MG VIAL IM PRN ×2 (16:10→16:18)
[2016-09-02] MEDS ORDERED: ONDANSETRON 4 MG/2 ML VIAL IV PRN (16:10)
[2016-09-02] MEDS ORDERED: MORPHINE 2 MG/1 ML SYRINGE IV PRN (16:10)
--- NOTE | 2016-09-02 17:01 | Event Note ---
Mrs Crooks was seen in clinic today with accerating pain and inability to ambulate. She has fallen 3x over the last 6 months. The last fall was one month ago. She has had a previous orif left hip 2 years ago. Xrays show a basilar neck fx with screw cut out. I have advised conversion to a COURTNEY. Will consult the the orthopedic specialty hospital service for perioperative medical management.
[2016-09-02 17:12] LABS: Basophils # 0.1 10*3/uL (0.0-0.2); Basophils % 0.8 % (0.0-0.8); Eosinophils # 0.3 10*3/uL (0.0-0.87); Eosinophils % 2.3 % (0.00-10.9); Hemoglobin 12.4 GM/DL (12.0-16.0); Immature Granulocytes % 0.5 %; Immature Granulocytes Absolute 0.06 #; Lymphocytes # 2.5 10*3/uL (1.4-4.0); Mean Corpuscular HGB Conc 31.8 GM/DL (32-36); Mean Corpuscular Hemoglobin 27 PG (27-34); Mean Corpuscular Volume 83.7 FL (87-102); Mean Platelet Volume 10.7 FL (9.6-12.0); Monocytes # 0.8 10*3/uL (0.11-0.8); Monocytes % 6.6 % (1.7-12.7); Neutrophils # 8.7 10*3/uL (1.4-7.4); Neutrophils % 69.8 % (38.7-73.9); Platelet Count 382 T/CUMM (130-400); Red Blood Count 4.66 MC/CUMM (3.8-5.5); Red Cell Distribution Width 15.9 % (9.3-17.3); White Blood Count 12.4 T/CUMM (4-12)
[2016-09-02 17:23] LABS: PT Patient Result 10.1 SECS; Partial Thromboplastin Time 28.9 SECS (0-40)
[2016-09-02 17:34] LABS: Alanine Aminotransferase 12 U/L (13-56); Albumin 3.6 G/DL (3.4-5.0); Alkaline Phosphatase 130 U/L (45-117); Aspartate Amino Transferase 15 U/L (0-37); Bilirubin,Total < 0.39 MG/DL (0.2-1.0); Blood Urea Nitrogen 22 MG/DL (7-18); Calcium 9.7 MG/DL (8.5-10.1); Glucose 219 MG/DL (74-106); Osmolality,Calculated 288.4 MOS/KG (273-304); Sodium 140 MMOL/L (136-145); Total Protein 7.1 G/DL (6.4-8.3)
[2016-09-02] MEDS: INSULIN LISPRO 100 UNIT/ML SUBCUT SCH ×2 (17:40→22:14)
[2016-09-02] MEDS: LACTATED RINGERS 1,000 ML IV SCH (17:59)
--- NOTE | 2016-09-02 18:27 | Hospitalist Consult Note ---
Assessment and Plan (1) Intertrochanteric fracture of left hip Status: Acute Assessment and plan: left hip surgery in am Current Visit: No Qualifiers: Encounter type: initial encounter Fracture type: closed Qualified Code(s) : S72.142A - Displaced intertrochanteric fracture of left femur, initial encounter for closed fracture (2) Hypertension Status: Acute Assessment and plan: cont atenolol Current Visit: Yes (3) Gout Status: Chronic Assessment and plan: cont allopurinol Current Visit: No (4) Diabetes type 2, uncontrolled Status: Chronic Assessment and plan: hemoglobin A1c now Current Visit: No History of Present Illness - Data of Consult Consult date: 09/02/16 Requesting Physician: Chirag Billings Jr. - Consult Narrative Reason for consult: medical management of DM, HTN History of present illness: Ms. Crooks is a 70 year old female with a history of diabetes, HTN presents with pain in left hip. Patient went to see Dr. Billings and was noted to have basilar neck fx with screw cut out. Orthopedics asked us to manage her diabetes , hypertension and gout. CC: Chirag Billings Jr., - Home Medications and Allergies Home Medications: Home Medications Medication Instructions Recorded Confirmed Type Carbidopa/Levodopa 25-100 [Sinemet 1 tablet PO BID 08/29/14 09/02/16 History 25-100] Ropinirole HCl [Requip] 2 mg PO BID 08/29/14 09/02/16 History Doxylamine Succinate [Unisom] 25 mg PO BEDTIME PRN 08/05/16 09/02/16 History Furosemide 40 mg PO BID 08/05/16 09/02/16 History Insulin Aspart Prot/Insuln Asp 38 units SUBCUT QPM 08/05/16 09/02/16 History [NovoLOG Mix 70-30 FlexPen] Insulin Aspart Prot/Insuln Asp 42 units SUBCUT QAM 08/05/16 09/02/16 History [NovoLOG Mix 70-30 FlexPen] Naproxen Sodium [Aleve Cap] 220 mg PO Q8H PRN 08/05/16 09/02/16 History Potassium Chloride Cap/Tab [K Dur] 20 meq PO BID 08/05/16 09/02/16 History diazePAM [Diazepam] 5 mg PO BID 08/05/16 09/02/16 History HYDROcodone/ACETAMIN 10-325 [[place] 1 tablet PO Q8HR PRN 08/06/16 09/02/16 History 10-325] Allopurinol [Zyloprim] 300 mg PO DAILY tablet 08/07/16 09/02/16 Rx Atenolol [Tenormin] 50 mg PO DAILY tablet 08/07/16 09/02/16 Rx Baclofen Tab [Lioresal] 5 mg PO BEDTIME #30 tablet 08/07/16 09/02/16 Rx Levothyroxine Tab [Synthroid Tab] 75 mcg PO DAILY@0700 #30 tablet 08/07/1609/02 Rx Allergies/Adverse Reactions: Allergies Allergy/AdvReac Type Severity Reaction Status Date / Time Sulfa (Sulfonamide Allergy RASH Verified 08/05/16 12:55 Antibiotics) Wfrdqyy-Woz-Dbi Reductase AdvReac Intermediate Weakness Verified 08/05/16 12:55 Inhibitor promethazine [From Phenergan] AdvReac Hallucinati Verified 08/05/16 12:55 ng Medical,Surgical,& Family Hx - Medical History Cardio: History of: Cardiac Dysrhythmia, Hypertension Psychological: No history of: Anxiety Disorders, ADHD, Behavior Problems, Bipolar Disorder, Depression, Previous Suicide Attempt, Psychiatric/Substance Abuse Tx, Schizophrenia, Violent Behavior, Psychiatric Problems Neurology: History of: TIA (Patient reports history of TIA) Endocrine: History of: Diabetes Mellitus (IDDM), Thyroid Disorder Rheumatology: History of;: Gout Genitourinary: History of: Kidney Stones Gastrointestinal: History of: GERD Musculoskeletal: History of: Osteoporosis Hematology: History of: Anemia - Surgical History Thoracic Surgeries: Surgical HX of;: Lithotripsy (Twice) HEENT Surgeries: Surgical HX of: Thyroid Surgery (Thyroid removed) Reproductive Surgeries: Surgical HX of;: Hysterectomy Orthopedic Surgeries: Surgical HX of;: Orthopedic Surgery (R total knee arthroplasty and Left total hip) - Family History Family History: Reports;: Family Cancer (Bladder cancer-Mom), Family Diabetes, Additional Family History (hx of blood clots ) - Social History Smoking Status: Never smoker Frequency of Alcohol Use: None Type of Drug Use: None Marital Status: Lives With:: Spouse Functional capacity: independent ambulation - Constitutional Constitutional: Absent: fever(s), frequent falls, headache(s) - EENT Eyes: Absent: blurry vision, diplopia Ears: Absent: decreased hearing, ear discharge Nose, mouth and throat: Absent: headache(s), sore throat - Cardiovascular Cardiovascular: Absent: chest pain at rest, dyspnea - Respiratory Respiratory: Absent: dyspnea, dyspnea on exertion, snoring - Gastrointestinal Gastrointestinal: Absent: constipation, diarrhea, nausea, vomiting - Genitourinary Genitourinary: Present: urinary incontinence. Absent: difficulty urinating, dysuria - Neurological Neurological: Absent: headache(s), syncope - Psychiatric Psychiatric: Absent: anxiety, depression - Endocrine Endocrine: Absent: fatigue, heat intolerance - Hematologic/Lymphatic Hematologic/Lymphatic: Absent: easy bleeding, easy bruising Exam - Constitutional Vitals: Period Temp Pulse Resp BP Sys/Shipley Pulse Ox Last 24 Hr 97.2 F 69 18 125/62 94 General appearance: no acute distress, over weight - Head Head exam: Present: normal inspection, normocephalic - Eye Eye exam: Present: EOMI. Absent: scleral icterus Pupils: Present: SHANAE, normal accommodation - ENT ENT exam: Present: normal exam, normal external ear exam - Neck Neck exam: Absent: lymphadenopathy, thyromegaly - Respiratory Respiratory exam: Present: clear to auscultation bilaterally. Absent: rhonchi, wheezes - Cardiovascular Cardiovascular exam: Present: regular rate and rhythm. Absent: systolic murmur - GI/Abdominal GI/Abdominal exam: Present: normal bowel sounds, soft. Absent: tenderness - Extremities Exam Extremities exam: Present: normal capillary refill, edema (right lower extremity edema ) - Neurological Exam Neurological exam: Present: alert, oriented X3, CN II-XII intact, reflexes normal. Absent: motor sensory deficit - Psychiatric Psychiatric exam: Present: normal affect, normal mood Results - Labs CBC & BMP: 09/02/16 16:56 09/02/16 16:56 Lab Results: I have reviewed the past 24 hour labs - Diagnostic Findings Procedure: Ultrasound: report reviewed by me (Venous Dopplers and July no evidence of DVT on right leg )
[2016-09-02] MEDS ORDERED: DOXYLAMINE SUCCINATE 25 MG PO PRN (18:31)
[2016-09-02] MEDS ORDERED: DIAZEPAM 5 MG TABLET PO PRN (18:35)
--- NOTE | 2016-09-02 19:24 | XRay Report ---
XR chest 2V Indication: Preop Comparison: Chest x-ray dated August 05, 2016 Technique: Frontal and lateral views of the chest. Findings: Stable mild cardiomegaly. Chronic change of the lungs without focal consolidation, pleural effusion, or pneumothorax. The lungs are again somewhat hyperinflated which may reflect COPD. Visualized osseous and surrounding soft tissue structures appear grossly unchanged. IMPRESSION: As above. PROCEDURE INTERPRETED AT [facility] DEPARTMENT OF RADIOLOGY Final Report Signed by: Dr Victor Hugo Medellin
[2016-09-02 19:31] LABS: Thyroid Stimulating Hormone 3.73 uIU/ml (0.358-3.74)
[2016-09-02] MEDS ORDERED: NON-FORMULARY MEDICATION (Ropinirole Hcl [Requip] 2 MG) PO SCH (21:00)
[2016-09-02] MEDS ORDERED: FUROSEMIDE 40 MG TABLET PO SCH (21:00)
[2016-09-02] MEDS ORDERED: POTASSIUM CHLORIDE 20 MEQ TABLET PO SCH (21:00)
[2016-09-02] MEDS ORDERED: DIAZEPAM 5 MG TABLET PO SCH (21:00)
[2016-09-02] MEDS ORDERED: CARBIDOPA/LEVODOPA 25-100 MG TABLET PO SCH (21:00)
[2016-09-02] MEDS: BACLOFEN 10 MG TABLET PO SCH (21:12)
[2016-09-02] MEDS: rOPINIRole 1 MG TABLET PO SCH (21:12)
[2016-09-02] MEDS: CARBIDOPA/LEVODOPA 25-100 MG TABLET PO SCH (21:12)
[2016-09-02] MEDS: DOCUSATE SODIUM 100 MG CAPSULE PO SCH (21:12)
[2016-09-02] MEDS: INSULIN ASPART PROTAMINE/ASPART 70/30 100 UNIT/ML SUBCUT SCH (22:14)
[2016-09-03 03:56] LABS: Osmolality,Calculated 288.4 MOS/KG (273-304); Potassium 3.7 MMOL/L (3.5-5.1)
[2016-09-03] MEDS: LACTATED RINGERS 1,000 ML IV SCH ×2 (04:01→17:00)
[2016-09-03] MEDS: LEVOTHYROXINE 75 MCG TABLET PO SCH (06:11)
[2016-09-03] MEDS ORDERED: LEVOTHYROXINE 75 MCG TABLET PO SCH (07:00)
[2016-09-03] MEDS ORDERED: INSULIN ASPART PROTAMINE/ASPART 70/30 100 UNIT/ML SUBCUT SCH (07:30)
[2016-09-03] MEDS: MORPHINE 2 MG/1 ML SYRINGE IV PRN ×2 (08:00→13:28)
[2016-09-03] MEDS: INSULIN LISPRO 100 UNIT/ML SUBCUT SCH ×4 (08:06→22:27)
--- NOTE | 2016-09-03 08:25 | EKG Report ---
Stationary ECG Study [facility] Test Date: 09/03/2016 8:09:44 AM Pat Name: GABRIEL STEVENS Department: Room: 341 Gender: F Dance Therapist: HOLLEY : 1945 Requested by: Chirag Friedman Order Number: [id number] Reading MD: MATT FRANCO Intervals [place] Rate: 65 P: 86 MD: 202 QRS: -13 QRSD: 80 T: 39 QT: 377 QTc: 389 Interpretive Statements SINUS RHYTHM at 65 bpm LOW QRS VOLTAGE IN PRECORDIAL LEADS POSSIBLE OLD ANTERIOR MYOCARDIAL INFARCTION Electronically Signed On 09-05-16 12:07:59 CDT by MATT FRANCO [email or web address]
[2016-09-03] MEDS ORDERED: ATENOLOL 50 MG TABLET PO SCH (09:00)
--- NOTE | 2016-09-03 10:49 | Orthopedic Progress Note ---
Orthopedics - Subjective Interval history: Mrs. Crooks is comfortable. She is irritable with motion of her left hip. She is neurovascularly unchanged. Plan: We will proceed later today with hardware removal and conversion to a left total hip arthroplasty. Risks and benefits were discussed and all questions were answered. Exam - Constitutional Vitals: Period Temp Pulse Resp BP Sys/Shipley Pulse Ox Last 24 Hr 97.2 F-97.7 F 66-77 18-18 109-125/49-66 93-95 Results - Labs CBC & BMP: 09/02/16 16:56 09/03/16 02:29
[2016-09-03] MEDS: INSULIN ASPART PROTAMINE/ASPART 70/30 100 UNIT/ML SUBCUT SCH ×2 (11:52→22:21)
[2016-09-03 12:46] LABS: Apearance,Urine CLEAR (Clear); Bilirubin,Urine Negative (Negative); Blood, Urine Negative (Negative); Glucose,Urine (UA) 50 mg/dL (Negative); Ketones,Urine Negative (Negative); Mucus,Urine Occasional /LPF (Occasional); Nitrite,Urine Negative (Negative); Protein,Urine Negative; Squamous Epithelial Cell,Urine Occasional /HPF (0-10); Urine Color Yellow (Yellow); Urine Specific Gravity 1.016 (1.001-1.035); Urine Urobilinogen < 2.0 EU/DL (0.2-1.0); WBC,Urine 19 /HPF (0-6)
--- NOTE | 2016-09-03 13:34 | Hospitalist Progress Note ---
Hospitalist: Subjective Interval history: Pt states pain is relatively controlled. Just received IV Morphine. No fever. No chest pain or SOB. No nausea or vomiting. Exam - Constitutional Vitals: Period Temp Pulse Resp BP Sys/Shipley Pulse Ox Last 24 Hr 97.2 F-97.7 F 66-77 18-18 109-138/49-82 93-96 Exam: A and O x 3, pleasant, NAD] RRR no M CTAB nonlabored Soft, NT, ND, +BS, obese Warm no c/c/e Results - Labs CBC & BMP: 09/02/16 16:56 09/03/16 02:29 - Impressions (1) Intertrochanteric fracture of left hip Status: Acute Assessment and plan: left hip surgery planned for later today Current Visit: No Qualifiers: Encounter type: subsequent encounter Fracture type: closed Qualified Code (s): S72.142A - Displaced intertrochanteric fracture of left femur, subsequent encounter for closed fracture (2) Diabetes type 2, uncontrolled Status: Chronic Assessment and plan: hemoglobin A1c now. I.S.S. accuchecks ac,hs. Change fluid to include dextrose so pt won't become hypoglycemic Current Visit: No (3) Hypertension, Essential Status: Acute Assessment and plan: cont atenolol Current Visit: Yes (4) Gout Status: Chronic Assessment and plan: cont allopurinol Current Visit: No DVT prophylaxis- start Lovenox after surgery D/W pt, , and nurse. I will be away several days. One of my associates will follow in my absence.
[2016-09-03] MEDS ORDERED: DEXTROSE 5% LACTATED RINGERS 1,000 ML IV SCH (14:00)
[2016-09-03] MEDS: ATENOLOL 50 MG TABLET PO SCH (14:13)
[2016-09-03] MEDS ORDERED: ceFAZolin 2,000 MG in PREMIX 1 EACH IV ONE (14:15)
[2016-09-03] MEDS ORDERED: BACITRACIN OINT 0.9 GM PACK TOP ONE (14:42)
[2016-09-03] MEDS ORDERED: TRANEXAMIC ACID 1,000 MG/10 ML VIAL IV ONE (14:43)
[2016-09-03] MEDS ORDERED: VANCOMYCIN 1,000 MG VIAL ONE (15:30)
[2016-09-03] MEDS ORDERED: VANCOMYCIN INJ 1,000 MG in SODIUM CHLORIDE 0.9% 250 ML IV ONE (16:10)
[2016-09-03 17:45] LABS: Apearance,Urine CLEAR (Clear); Bilirubin,Urine Negative (Negative); Blood, Urine Negative (Negative); Glucose,Urine (UA) 50 mg/dL (Negative); Ketones,Urine Negative (Negative); Nitrite,Urine Negative (Negative); Protein,Urine Negative; Squamous Epithelial Cell,Urine Occasional /HPF (0-10); Urine Color Yellow (Yellow); Urine Specific Gravity 1.012 (1.001-1.035); Urine Urobilinogen < 2.0 EU/DL (0.2-1.0)
--- NOTE | 2016-09-03 17:48 | Operative Note ---
Date of procedure: 09/03/16 Procedure: DIAGNOSIS: Left hip basilar neck fracture, hip lag screw cut out PROCEDURE: Left total hip arthroplasty (CPT#21030), hardware removal deep left hip SURGEON: Awa ANESTHESIA: Spinal PROCEDURE and FINDINGS: After adequate anesthesia was induced, the patient was placed in lateral decubitus position. Left lower extremities prepped and draped in usual sterile fashion. Posteriolateral approach to the hip was made. Skin, subcutaneous tissue and deep fascia was incised longitudinally. Gluteus judson muscle belly was split in line with its fibers. The vastus lateralis was elevated exposing the DHS implant. Attention was then directed to the hip. Piriformis, external rotators and capsule were taken down as a single layer as an inverted L shaped capsulotomy. Hip was dislocated. The DHE implant was removed intact. The femoral head was easily removed. Scar tissue was excised from about the proximal femur to expose the neck. Acetabulum was prepared by sequentially reaming to 47 mm. A 48 mm Continuum acetabular shell was press-fit with excellent stability. 2 6.5 millimeter screw was placed with an excellent bite. 32 mm neutral longevity liner was placed with a dome hole plug. Femur was prepared sequentially with the box osteotome, canal finder and sequential broaches to 13. Components were trialed. A size 13 Versys fiber metal tapered stem was press-fit. A 32-3.5 mm head was placed. The component was stable posteriorly and anteriorly. Capsule was repaired with 0 Vicryl. Deep fascia was closed with 0 Vicryl [id number] suture. Subcutaneous tissue was closed deep with a 2-0 Vicryl runner and superficially with 3-0 interrupted buried sutures. Skin was closed with fiordaliza. Bacitracin and a sterile occlusive dressing was applied. Surgeon / Physician: Chirag Billings Jr. Results - Labs CBC & BMP: 09/02/16 16:56 09/03/16 02:29 Discharge Plan - Discharge Medications No Action Ropinirole HCl [Requip] 2 mg PO BID Carbidopa/Levodopa 25-100 [Sinemet 25-100] 1 tablet PO BID diazePAM [Diazepam] 5 mg PO BID Furosemide 40 mg PO BID Insulin Aspart Prot/Insuln Asp [NovoLOG Mix 70-30 FlexPen] 42 units SUBCUT QAM Insulin Aspart Prot/Insuln Asp [NovoLOG Mix 70-30 FlexPen] 38 units SUBCUT QPM Potassium Chloride Cap/Tab [K Dur] 20 meq PO BID Doxylamine Succinate [Unisom] 25 mg PO BEDTIME PRN PRN Reason: Insomnia HYDROcodone/ACETAMIN 10-325 [[place] 10-325] 1 tablet PO Q8HR PRN PRN Reason: Pain Atenolol [Tenormin] 50 mg PO DAILY tablet Levothyroxine Tab [Synthroid Tab] 75 mcg PO DAILY@0700 #30 tablet Naproxen Sodium [Aleve Cap] 220 mg PO Q8H PRN PRN Reason: Pain Allopurinol [Zyloprim] 300 mg PO DAILY tablet Baclofen Tab [Lioresal] 5 mg PO BEDTIME #30 tablet - Follow Up or Referral - Forms/Instructions
[2016-09-03 18:13] LABS: Basophils # 0.1 10*3/uL (0.0-0.2); Basophils % 0.6 % (0.0-0.8); Eosinophils # 0.3 10*3/uL (0.0-0.87); Hematocrit 34.2 VOL% (35.7-47.0); Hemoglobin 10.6 GM/DL (12.0-16.0); Immature Granulocytes % 1.2 %; Immature Granulocytes Absolute 0.16 #; Lymphocytes # 2.9 10*3/uL (1.4-4.0); Lymphocytes % 21.8 % (21.3-54.2); Mean Corpuscular Hemoglobin 27 PG (27-34); Mean Corpuscular Volume 85.5 FL (87-102); Mean Platelet Volume 10.7 FL (9.6-12.0); Monocytes # 0.7 10*3/uL (0.11-0.8); Monocytes % 5.5 % (1.7-12.7); Neutrophils # 9.2 10*3/uL (1.4-7.4); Neutrophils % 68.9 % (38.7-73.9); Platelet Count 300 T/CUMM (130-400); Red Cell Distribution Width 15.8 % (9.3-17.3); White Blood Count 13.4 T/CUMM (4-12)
[2016-09-03 18:30] LABS: Calcium 8.9 MG/DL (8.5-10.1); Osmolality,Calculated 282.3 MOS/KG (273-304); Potassium 4.3 MMOL/L (3.5-5.1)
--- NOTE | 2016-09-03 18:31 | XRay Report ---
Left hip one view. Indication: Postoperative, total hip replacement. Comparison: May 21, 2016. There has been interval replacement of the previous hardware with a total hip replacement. The hardware appears to be in good position. There is no dislocation. No acute fracture lines are identified. Lucencies are seen in the proximal left femur from the previous hardware which was removed. No loose hardware. Surgical skin fiordaliza project over the hip. Impression: Expected postoperative appearance. PROCEDURE INTERPRETED AT [facility] DEPARTMENT OF RADIOLOGY Final Report Signed by: Dr. Keisha Logan
[2016-09-03] MEDS ORDERED: fentaNYL 100 MCG/2 ML VIAL ONE (18:57)
[2016-09-03] MEDS ORDERED: MIDAZOLAM 2 MG/2 ML VIAL ONE (18:57)
[2016-09-03] MEDS ORDERED: KETAMINE 500 MG/10 ML VIAL ONE (18:59)
[2016-09-03] MEDS ORDERED: LACTATED RINGERS 1,000 ML IV ONE (18:59)
[2016-09-03] MEDS ORDERED: SODIUM CHLORIDE 0.9% 250 ML IV ONE (18:59)
[2016-09-03] MEDS: CARBIDOPA/LEVODOPA 25-100 MG TABLET PO SCH ×2 (19:19→20:37)
[2016-09-03] MEDS: ALLOPURINOL 300 MG TABLET PO SCH (19:19)
[2016-09-03] MEDS: rOPINIRole 1 MG TABLET PO SCH ×2 (19:20→20:37)
[2016-09-03] MEDS: DOCUSATE SODIUM 100 MG CAPSULE PO SCH ×2 (19:20→20:38)
[2016-09-03] MEDS: DEXT 5% LACT RING KCL 20 MEQ 20 MEQ/1,000 ML BAG IV SCH (20:35)
[2016-09-03] MEDS: KETOROLAC 30 MG/1 ML VIAL IV SCH (20:36)
[2016-09-03] MEDS: BACLOFEN 10 MG TABLET PO SCH (20:37)
[2016-09-03] MEDS: ceFAZolin 2,000 MG in PREMIX 1 EACH IV SCH (22:47)
[2016-09-04] MEDS: oxyCODONE IR 5 MG TABLET PO PRN ×3 (01:10→15:56)
[2016-09-04] MEDS: KETOROLAC 30 MG/1 ML VIAL IV SCH ×3 (01:16→12:13)
[2016-09-04] MEDS ORDERED: VANCOMYCIN INJ 1,000 MG in SODIUM CHLORIDE 0.9% 250 ML IV ONE (01:40)
[2016-09-04] MEDS: DEXT 5% LACT RING KCL 20 MEQ 20 MEQ/1,000 ML BAG IV SCH (05:50)
[2016-09-04] MEDS: ceFAZolin 2,000 MG in PREMIX 1 EACH IV SCH (05:52)
[2016-09-04 05:55] LABS: Basophils # 0.1 10*3/uL (0.0-0.2); Basophils % 0.6 % (0.0-0.8); Eosinophils # 0.2 10*3/uL (0.0-0.87); Eosinophils % 1.4 % (0.00-10.9); Hematocrit 29.4 VOL% (35.7-47.0); Hemoglobin 9.2 GM/DL (12.0-16.0); Immature Granulocytes % 0.7 %; Immature Granulocytes Absolute 0.08 #; Lymphocytes # 2.2 10*3/uL (1.4-4.0); Lymphocytes % 17.9 % (21.3-54.2); Mean Corpuscular HGB Conc 31.3 GM/DL (32-36); Mean Corpuscular Hemoglobin 27 PG (27-34); Mean Corpuscular Volume 85.2 FL (87-102); Mean Platelet Volume 11.3 FL (9.6-12.0); Monocytes # 0.8 10*3/uL (0.11-0.8); Monocytes % 6.7 % (1.7-12.7); Neutrophils # 8.9 10*3/uL (1.4-7.4); Neutrophils % 72.7 % (38.7-73.9); Platelet Count 272 T/CUMM (130-400); Red Blood Count 3.45 MC/CUMM (3.8-5.5); Red Cell Distribution Width 15.7 % (9.3-17.3); White Blood Count 12.2 T/CUMM (4-12)
[2016-09-04] MEDS: LEVOTHYROXINE 75 MCG TABLET PO SCH (06:09)
[2016-09-04 06:25] LABS: Calcium 8.3 MG/DL (8.5-10.1); Osmolality,Calculated 282.8 MOS/KG (273-304); Potassium 4.7 MMOL/L (3.5-5.1)
[2016-09-04] MEDS ORDERED: GLUCAGON 1 MG VIAL IM PRN (06:55)
[2016-09-04] MEDS ORDERED: DEXTROSE 50% 25 GM/50 ML VIAL IV PRN (06:55)
--- NOTE | 2016-09-04 08:28 | Orthopedic Progress Note ---
Orthopedics - Subjective Interval history: Mrs. Crooks is comfortable this morning. She is having less pain. Dressing clean, dry and intact. Left lower extremities neurovascularly unchanged. Plan: Mobilize with physical therapy. The patient is considering home health, but has not made up her mind. Exam - Constitutional Vitals: Period Temp Pulse Resp BP Sys/Shipley Pulse Ox Last 24 Hr 96.9 F-98.6 F 55-101 16-20 90-168/33-98 92-100 Results - Labs CBC & BMP: 09/04/16 05:02 09/04/16 05:02
[2016-09-04] MEDS: INSULIN LISPRO 100 UNIT/ML SUBCUT SCH ×4 (08:52→20:17)
[2016-09-04] MEDS: INSULIN ASPART PROTAMINE/ASPART 70/30 100 UNIT/ML SUBCUT SCH ×2 (08:53→18:33)
[2016-09-04] MEDS: DOCUSATE SODIUM 100 MG CAPSULE PO SCH ×2 (08:54→20:17)
[2016-09-04] MEDS: CARBIDOPA/LEVODOPA 25-100 MG TABLET PO SCH ×2 (08:55→20:17)
[2016-09-04] MEDS: rOPINIRole 1 MG TABLET PO SCH ×2 (08:55→20:17)
[2016-09-04] MEDS: ALLOPURINOL 300 MG TABLET PO SCH (08:55)
[2016-09-04] MEDS: ATENOLOL 50 MG TABLET PO SCH (12:10)
[2016-09-04] MEDS: FONDAPARINUX 2.5 MG/0.5 ML SYRINGE SUBCUT SCH (12:13)
[2016-09-04] MEDS ORDERED: LIDOCAINE 2% 5 ML VIAL ONE (14:54)
[2016-09-04] MEDS ORDERED: PHENYLEPHRINE 1 MG/10 ML SYRINGE IV ONE (14:54)
[2016-09-04] MEDS ORDERED: PROPOFOL 200 MG/20 ML VIAL IV ONE (14:54)
[2016-09-04] MEDS: BACLOFEN 10 MG TABLET PO SCH (20:17)
--- NOTE | 2016-09-04 22:07 | Hospitalist Progress Note ---
Hospitalist: Subjective Interval history: Pain is well controlled, ambulating with PT after surgery Exam - Constitutional Vitals: Period Temp Pulse Resp BP Sys/Shipley Pulse Ox Last 24 Hr 96.9 F-99.5 F 66-77 16-20 100-150/43-73 93-100 Exam: General: [No Acute Distress] HEENT: [Normocephalic, atraumatic, Extra ocular movements intact] Neck: [Supple, No JVD] Chest: [Clear to auscultation B/L] CV: [S1 + S2 audible without murmur, gallop or rub] Abd: [soft, NT, Non-distended, BS +] Ext: [No edema] Skin: [No purpura, bruising or rash] Rheumatologic: [No Joint deformities] Neurologic: [Strengtg 5/5 all extremities, no gross sensory deficits] Results - Labs CBC & BMP: 09/04/16 05:02 09/04/16 05:02 - Impressions (1) Intertrochanteric fracture of left hip Status: Acute Assessment and plan: Doing well after surgery Current Visit: No Qualifiers: Encounter type: subsequent encounter Fracture type: closed Qualified Code (s): S72.142A - Displaced intertrochanteric fracture of left femur, subsequent encounter for closed fracture (2) Diabetes type 2, uncontrolled Status: Chronic Assessment and plan: hemoglobin A1c now. I.S.S. amor choe,hs. Current Visit: No (3) Hypertension, Essential Status: Acute Assessment and plan: cont atenolol Current Visit: Yes (4) Gout Status: Chronic Assessment and plan: cont allopurinol Current Visit: No
[2016-09-05] MEDS: LEVOTHYROXINE 75 MCG TABLET PO SCH (06:59)
--- NOTE | 2016-09-05 07:58 | Orthopedic Progress Note ---
Orthopedics - Subjective Interval history: Adri Crooks was able to ambulate in the hoover yesterday. She is noticed a significant difference in her hip. Her dressing is clean, dry and intact. Left lower extremities neurovascularly unchanged. Morning labs are still pending. Plan: Encourage inspiratory spirometry, protein intake and hip precautions. She is elected for swing bed placement. Exam - Constitutional Vitals: Period Temp Pulse Resp BP Sys/Shipley Pulse Ox Last 24 Hr 97.7 F-99.8 F 75-79 16-20 120-150/54-73 93-95 Results - Labs CBC & BMP: 09/04/16 05:02 09/04/16 05:02
[2016-09-05 08:03] LABS: Basophils # 0.1 10*3/uL (0.0-0.2); Basophils % 0.6 % (0.0-0.8); Eosinophils # 0.2 10*3/uL (0.0-0.87); Eosinophils % 1.4 % (0.00-10.9); Hemoglobin 9.5 GM/DL (12.0-16.0); Immature Granulocytes % 0.7 %; Lymphocytes # 2.5 10*3/uL (1.4-4.0); Lymphocytes % 17.5 % (21.3-54.2); Mean Corpuscular HGB Conc 31.7 GM/DL (32-36); Mean Corpuscular Hemoglobin 27 PG (27-34); Mean Corpuscular Volume 84.3 FL (87-102); Mean Platelet Volume 11.6 FL (9.6-12.0); Monocytes # 1.2 10*3/uL (0.11-0.8); Monocytes % 8.6 % (1.7-12.7); Neutrophils # 10.3 10*3/uL (1.4-7.4); Neutrophils % 71.2 % (38.7-73.9); Platelet Count 279 T/CUMM (130-400); Red Blood Count 3.56 MC/CUMM (3.8-5.5); White Blood Count 14.4 T/CUMM (4-12)
[2016-09-05] MEDS: INSULIN LISPRO 100 UNIT/ML SUBCUT SCH ×4 (08:25→21:48)
[2016-09-05] MEDS: INSULIN ASPART PROTAMINE/ASPART 70/30 100 UNIT/ML SUBCUT SCH ×2 (08:33→18:34)
[2016-09-05] MEDS: CARBIDOPA/LEVODOPA 25-100 MG TABLET PO SCH ×2 (08:34→21:47)
[2016-09-05] MEDS: oxyCODONE IR 5 MG TABLET PO PRN ×2 (08:35→18:34)
[2016-09-05] MEDS: ATENOLOL 50 MG TABLET PO SCH (08:36)
[2016-09-05] MEDS: DOCUSATE SODIUM 100 MG CAPSULE PO SCH ×2 (08:36→20:59)
[2016-09-05] MEDS: rOPINIRole 1 MG TABLET PO SCH ×2 (08:36→21:00)
[2016-09-05] MEDS: ALLOPURINOL 300 MG TABLET PO SCH (08:36)
[2016-09-05] MEDS: FONDAPARINUX 2.5 MG/0.5 ML SYRINGE SUBCUT SCH (12:37)
--- NOTE | 2016-09-05 17:39 | Hospitalist Progress Note ---
Hospitalist: Subjective Interval history: Pain is well controlled, ambulating with PT after surgery Exam - Constitutional Vitals: Period Temp Pulse Resp BP Sys/Shipley Pulse Ox Last 24 Hr 98.2 F-99.8 F 69-79 17-20 109-130/52-65 90-96 Exam: General: [No Acute Distress] HEENT: [Normocephalic, atraumatic, Extra ocular movements intact] Neck: [Supple, No JVD] Chest: [Clear to auscultation B/L] CV: [S1 + S2 audible without murmur, gallop or rub] Abd: [soft, NT, Non-distended, BS +] Ext: [No edema] Skin: [No purpura, bruising or rash] Rheumatologic: [No Joint deformities] Neurologic: [Strengtg 5/5 all extremities, no gross sensory deficits] Results - Labs CBC & BMP: 09/05/16 06:33 09/04/16 05:02 - Impressions (1) Intertrochanteric fracture of left hip Status: Acute Assessment and plan: Doing well after surgery Current Visit: No Qualifiers: Encounter type: subsequent encounter Fracture type: closed Qualified Code (s): S72.142A - Displaced intertrochanteric fracture of left femur, subsequent encounter for closed fracture (2) Diabetes type 2, uncontrolled Status: Chronic Assessment and plan: hemoglobin A1c now. I.S.S. amor choe,hs. Current Visit: No (3) Hypertension, Essential Status: Acute Assessment and plan: cont atenolol Current Visit: Yes (4) Gout Status: Chronic Assessment and plan: cont allopurinol Current Visit: No DC Plan to rehab next week
[2016-09-05] MEDS: BACLOFEN 10 MG TABLET PO SCH (21:00)
[2016-09-06 05:27] LABS: Basophils # 0.1 10*3/uL (0.0-0.2); Basophils % 0.6 % (0.0-0.8); Eosinophils # 0.2 10*3/uL (0.0-0.87); Eosinophils % 1.6 % (0.00-10.9); Hematocrit 27.8 VOL% (35.7-47.0); Hemoglobin 8.9 GM/DL (12.0-16.0); Immature Granulocytes % 0.8 %; Lymphocytes # 2.5 10*3/uL (1.4-4.0); Lymphocytes % 19.6 % (21.3-54.2); Mean Corpuscular Hemoglobin 27 PG (27-34); Mean Platelet Volume 11.2 FL (9.6-12.0); Monocytes # 1.2 10*3/uL (0.11-0.8); Monocytes % 9.3 % (1.7-12.7); Neutrophils # 8.6 10*3/uL (1.4-7.4); Neutrophils % 68.1 % (38.7-73.9); Platelet Count 287 T/CUMM (130-400); Red Blood Count 3.35 MC/CUMM (3.8-5.5); Red Cell Distribution Width 15.8 % (9.3-17.3); White Blood Count 12.7 T/CUMM (4-12)
[2016-09-06] MEDS: LEVOTHYROXINE 75 MCG TABLET PO SCH (06:14)
[2016-09-06] MEDS: INSULIN LISPRO 100 UNIT/ML SUBCUT SCH ×4 (08:44→21:52)
[2016-09-06] MEDS: INSULIN ASPART PROTAMINE/ASPART 70/30 100 UNIT/ML SUBCUT SCH ×2 (08:45→18:10)
[2016-09-06] MEDS: CARBIDOPA/LEVODOPA 25-100 MG TABLET PO SCH ×2 (08:47→20:58)
[2016-09-06] MEDS: rOPINIRole 1 MG TABLET PO SCH ×2 (08:47→20:58)
[2016-09-06] MEDS: ALLOPURINOL 300 MG TABLET PO SCH (08:48)
[2016-09-06] MEDS: DOCUSATE SODIUM 100 MG CAPSULE PO SCH ×2 (08:48→20:59)
[2016-09-06] MEDS: ATENOLOL 50 MG TABLET PO SCH (08:48)
[2016-09-06] MEDS: APIXABAN 2.5 MG TABLET PO SCH ×3 (08:53→20:59)
--- NOTE | 2016-09-06 11:42 | Orthopedic Progress Note ---
Orthopedics - Subjective Interval history: Doing well. Walking in hoover. NV ok. Dressing dry. Continue current plan. To TMR tomorrow. Exam - Constitutional Vitals: Period Temp Pulse Resp BP Sys/Shipley Pulse Ox Last 24 Hr 96.9 F-98.5 F 63-73 17-19 109-140/52-71 90-95 Results - Labs CBC & BMP: 09/06/16 05:00 09/04/16 05:02
--- NOTE | 2016-09-06 13:40 | Hospitalist Progress Note ---
Hospitalist: Subjective Interval history: Pain is well controlled, ambulating with PT after surgery Exam - Constitutional Vitals: Period Temp Pulse Resp BP Sys/Shipley Pulse Ox Last 24 Hr 96.9 F-98.6 F 63-90 17-19 112-140/42-71 91-95 Exam: General: [No Acute Distress] HEENT: [Normocephalic, atraumatic, Extra ocular movements intact] Neck: [Supple, No JVD] Chest: [Clear to auscultation B/L] CV: [S1 + S2 audible without murmur, gallop or rub] Abd: [soft, NT, Non-distended, BS +] Ext: [No edema] Skin: [No purpura, bruising or rash] Rheumatologic: [No Joint deformities] Neurologic: [Strengtg 5/5 all extremities, no gross sensory deficits] Results - Labs CBC & BMP: 09/06/16 05:00 09/04/16 05:02 - Impressions (1) Intertrochanteric fracture of left hip Status: Acute Assessment and plan: Doing well after surgery Current Visit: No Qualifiers: Encounter type: subsequent encounter Fracture type: closed Qualified Code (s): S72.142A - Displaced intertrochanteric fracture of left femur, subsequent encounter for closed fracture (2) Diabetes type 2, uncontrolled Status: Chronic Assessment and plan: hemoglobin A1c now. I.S.S. amor choe,hs. Current Visit: No (3) Hypertension, Essential Status: Acute Assessment and plan: cont atenolol Current Visit: Yes (4) Gout Status: Chronic Assessment and plan: cont allopurinol Current Visit: No DC Plan to rehab next week
[2016-09-06] MEDS: BACLOFEN 10 MG TABLET PO SCH (20:59)
[2016-09-07] MEDS: LEVOTHYROXINE 75 MCG TABLET PO SCH (06:43)
--- NOTE | 2016-09-07 06:59 | Discharge Summary ---
Hospital Course - Hospital Course Hospital Course: Adri Crooks was admitted from clinic for pain control, workup and surgical treatment for a refracture of her left basilar neck intertrochanteric hip fracture and screw cut out. Hospitalist service was consulted to help manage medical problems perioperatively. She underwent an uncomplicated conversion to a left total hip replacement. She had significant pain relief and did very well with physical therapy. She remained received perioperative antimicrobial prophylaxis and DVT prophylaxis. She received physical therapy. She is to be discharged to swing bed in stable condition. Left lower extremities neurovascularly unchanged. Dressing is clean, dry and intact. Discharge Plan - Discharge Data Disposition: Disch/Xfer to Snf Condition at Discharge: Stable Discharge Diet: diabetic diet Weight Bearing at Discharge: partial weight bearing (50%) Driving: not until seen by doctor - Discharge Medications New Apixaban [Eliquis] 2.5 mg PO BID tablet Docusate Sodium Cap [Colace Cap] 100 mg PO BID capsule HYDROcodone/ACETAMIN 7.5-325 [[place]rient 7.5-325] 1 tablet PO Q4H PRN tablet PRN Reason: Pain Moderate (4-7) Insulin Lispro [HumaLOG] See Protocol SUBCUT ACHS unit HYDROcodone/ACETAMIN 7.5-325 [[place]rient 7.5-325] 2 tablet PO Q4H PRN tablet PRN Reason: Pain Severe (8-10) Continue Ropinirole HCl [Requip] 2 mg PO BID Carbidopa/Levodopa 25-100 [Sinemet 25-100] 1 tablet PO BID diazePAM [Diazepam] 5 mg PO BID Furosemide 40 mg PO BID Insulin Aspart Prot/Insuln Asp [NovoLOG Mix 70-30 FlexPen] 42 units SUBCUT QAM Insulin Aspart Prot/Insuln Asp [NovoLOG Mix 70-30 FlexPen] 38 units SUBCUT QPM Potassium Chloride Cap/Tab [K Dur] 20 meq PO BID Doxylamine Succinate [Unisom] 25 mg PO BEDTIME PRN PRN Reason: Insomnia HYDROcodone/ACETAMIN 10-325 [[place] 10-325] 1 tablet PO Q8HR PRN PRN Reason: Pain Atenolol [Tenormin] 50 mg PO DAILY tablet Levothyroxine Tab [Synthroid Tab] 75 mcg PO DAILY@0700 #30 tablet Allopurinol [Zyloprim] 300 mg PO DAILY tablet Baclofen Tab [Lioresal] 5 mg PO BEDTIME #30 tablet Discontinued Naproxen Sodium [Aleve Cap] 220 mg PO Q8H PRN PRN Reason: Pain - Follow Up or Referral - Forms/Instructions Additional Discharge Instructions: Posterior hip precautions for 3 months. Daily dry dressing changes. Arrange for walker and bedside commode for home use. Wear JOSE hose for 1 month. Follow-up appointment in 1 month. Discontinue fiordaliza and Steri-Strip wound on September 15, 2016. Prescription for Orient 7.5 with 30 tablets was written. Stop Eliquis when discharged from swing bed. Exam - Constitutional Vitals: Period Temp Pulse Resp BP Sys/Shipley Pulse Ox Last 24 Hr 97.6 F-98.6 F 63-90 16-20 109-140/42-67 90-97 Discharge Results Labs on day of discharge: Labs from last 24 hours 09/06/16 09/06/16 09/06/16 21:23 16:47 11:45 POC Glucose 190 H 150 H 205 H 09/06/16 08:12 POC Glucose 182 H DS: Provider Date of admission: 09/02/16 16:31 Primary care physician: Ford Dias, Attending physician on admission: Chirag Billings Jr., Consults: 09/02/16 16:10 Consult to Anesthesiology [CONS] Routine Consulting Provider: Reason for Anesthesiology: Pre-op Clearance 09/02/16 16:16 Consult to Physician [CONS] Routine Comment: 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 Provider: Consult to Specialist Group: Hospitalist When should Consulting Provider be notified: Now Person Notified: [employer]ric called Date Notified: 09/02/16 Time Notified: 17:47 Consult Notification Comment: hospitalist called, i talked to edy 09/03/16 17:39 Consult to Case Mgmt/Social Srvs [CONS] Routine Reason for Case Mgmt/Social Srvs: Rehab Home Health Equipment Consult Comment: Bedside Commode, CPM, deliver to Pt's room before D/C; Pt 5ft 5in 215 lbs Consult to Occupational Therapy [CONS] Routine Reason for Occupational Therapy: Evaluate and Treat Consult Comment: ADL's Consult to Physical Therapy [CONS] Routine Reason for Physical Therapy: Evaluate and Treat Gait Training Consult Comment: 50% pwb, left hip precautions 09/04/16 14:52 Consult to Physical Therapy [CONS] Routine Reason for Physical Therapy: Other Consult Comment: Please deliver a Standard Walker to room before D/C. Discharging clinician: Chirag Billings Jr., Expected date of discharge: 09/07/16
[2016-09-07] MEDS: INSULIN ASPART PROTAMINE/ASPART 70/30 100 UNIT/ML SUBCUT SCH (08:46)
[2016-09-07] MEDS: ATENOLOL 50 MG TABLET PO SCH (08:47)
[2016-09-07] MEDS: INSULIN LISPRO 100 UNIT/ML SUBCUT SCH ×2 (08:52→12:04)
[2016-09-07] MEDS: CARBIDOPA/LEVODOPA 25-100 MG TABLET PO SCH (08:54)
[2016-09-07] MEDS: BACLOFEN 10 MG TABLET PO SCH (08:54)
[2016-09-07] MEDS: ALLOPURINOL 300 MG TABLET PO SCH (08:55)
[2016-09-07] MEDS: rOPINIRole 1 MG TABLET PO SCH (08:55)
[2016-09-07] MEDS: APIXABAN 2.5 MG TABLET PO SCH (08:55)
[2016-09-07] MEDS: DOCUSATE SODIUM 100 MG CAPSULE PO SCH (08:56)
[2016-09-07 11:38] VITALS: BP 119/60
[2016-09-07 11:44] LABS: Calcium 8.6 MG/DL (8.5-10.1); Osmolality,Calculated 275.8 MOS/KG (273-304); Potassium 4.4 MMOL/L (3.5-5.1)
--- NOTE | 2016-09-08 13:22 | Pathology Report from [facility] ---
[facility] ACCESSION # : [id number] PATIENT NAME : Adri Crooks ORDERING DR : DANA PLATA MD CLINICAL HX: LT femoral neck FX, retained hardware POST-OP DX: Same SPECIMEN INFO: #1 Femoral head LT #2 Hardware GROSS DESCRIPTION: Received in formalin in two parts labeled:#1 ADRI CROOKS & #1 is a fractured femoral head measuring 4.0 x 4.0 x 5.0 cm. The articular surface is smooth and dorman with no bone eburnation seen. The area of fracture is hemorrhagic with no softening. Customer Operations Specialist tissue is submitted in cassette # 1 following decalcification.#2.#2 ADRI RODNEY & #2 consists of hip replacement hardware, submitted for gross exam only. DIAGNOSIS FOR ADRI CROOKS: #1 LEFT FEMORAL HEAD: Hemorrhagic and necrotic marrow and trabecular bone consistent with clinical history of fracture. No evidence of malignancy by pancytokeratin and CD138 immunostains.#2 Orthopedic hardware, gross only. COLLECTED DATE: 09/04/2016 [facility] REPORT DATE: 09/07/2016 ELECTRONICALLY SIGNED BY: Desiree Sanchez III, M.D. 09/07/2016 - 12:58:22 GARCÍA
== END 2016-09-07 12:40 | disposition swing bed (61) | DRG 470 ==
LOC: N.3E 16:31
PROVIDERS: ADMIT Orthopaedic Surgery; ATTEND Orthopaedic Surgery